=== PATIENT | female | born 1985 | race Caucasian/White ===

== ENCOUNTER 2018-12-03 15:36 | Emergency (ER) | payer SELFPAY ==
--- NOTE | 2018-12-03 15:47 | ER Document Report ---
ED Medical Screen (RME) - General Stated Complaint: FLANK PAIN Time Seen by Provider: 12/03/18 15:41 Mode of Arrival: Ambulatory Information source: Patient Notes: 33-year-old female presenting to ED for complaint of bilateral flank pain pain all over. She states she has a history of frequent UTIs and that is what her normal complaints are. She states she just moved here from [facility] and does not have a local doctor. States she has had pain that started 3 days ago. States she drinks rarely uses marijuana and smokes a pack a day. She states she often gets UTIs. Patient is alert oriented respirations regular and unlabored at this time. Patient complains of nausea, urgency, frequency, and burning with urination. I have greeted and performed a rapid initial assessment of this patient. A comprehensive ED assessment and evaluation of the patient, analysis of test results and completion of medical decision making process will be conducted by an additional ED providers.
[2018-12-03 16:40] LABS: ABSOLUTE EOSINOPHILS # (AUTO) 0.5 10^3/uL (0.0-0.6); ABSOLUTE LYMPHOCYTES (AUTO) 2.2 10^3/uL (0.5-4.7); ABSOLUTE MONOCYTES (AUTO) 0.8 10^3/uL (0.1-1.4); ABSOLUTE NEUT (AUTO) 8.6 10^3/uL (1.7-8.2); BASOPHILS % (AUTO) 0.2 % (0-2); EOSINOPHILS % (AUTO) 4.2 % (0-6); HEMATOCRIT 42.2 % (36.0-47.0); HEMOGLOBIN 13.9 g/dL (12.0-15.5); LYMPHOCYTES % (AUTO) 17.8 % (13-45); MEAN CORPUSCULAR HEMOGLOBIN 28.9 pg (27.0-33.4); MEAN CORPUSCULAR VOLUME 88 fl (80-97); MONOCYTES % (AUTO) 6.4 % (3-13); PLATELET COUNT 312 10^3/uL (150-450); RED BLOOD COUNT 4.81 10^6/uL (3.72-5.28); RED CELL DISTRIBUTION WIDTH 15.3 % (11.5-14.0); SEGMENTED NEUTROPHILS % (AUTO) 71.4 % (42-78); TOTAL CELLS COUNTED % (AUTO) 100 %; WHITE BLOOD COUNT 12.1 10^3/uL (4.0-10.5)
[2018-12-03 16:49] LABS: APPEARANCE,URINE SLIGHTLY-CLOUDY; BILIRUBIN,URINE NEGATIVE (NEGATIVE); COLOR,URINE YELLOW; GLUCOSE, URINE NEGATIVE (NEGATIVE); KETONES,URINE NEGATIVE (NEGATIVE); LEUKOCYTE ESTERASE,URINE MODERATE (NEGATIVE); NITRITE,URINE NEGATIVE (NEGATIVE); PROTEIN,URINE NEGATIVE (NEGATIVE); URINE SPECIFIC GRAVITY 1.009; UROBILINOGEN,URINE NEGATIVE mg/dL (<2.0)
[2018-12-03 16:56] LABS: URINE AMPHETAMINES SCREEN NEGATIVE; URINE BARBITURATES SCREEN NEGATIVE; URINE BENZODIAZEPINES SCREEN NEGATIVE; URINE COCAINE SCREEN UNCONFIRMED POSITIVE; URINE MARIJUANA (THC) SCREEN NEGATIVE; URINE METHADONE SCREEN NEGATIVE; URINE PHENCYCLIDINE SCREEN NEGATIVE
[2018-12-03 16:57] LABS: ALKALINE PHOSPHATASE 131 U/L (38-126); ANION GAP 7 (5-19); ASPARTATE AMINO TRANSFERASE 169 U/L (14-36); BILIRUBIN,DIRECT 0.1 mg/dL (0.0-0.4); BILIRUBIN,TOTAL 0.8 mg/dL (0.2-1.3); BLOOD UREA NITROGEN 5 mg/dL (7-20); CALCIUM 9.8 mg/dL (8.4-10.2); CARBON DIOXIDE 32 mmol/L (22-30); CHLORIDE 99 mmol/L (98-107); GLUCOSE 113 mg/dL (75-110); POTASSIUM 4.2 mmol/L (3.6-5.0); TOTAL PROTEIN 7.4 g/dL (6.3-8.2)
[2018-12-03] MEDS ORDERED: CIPROFLOXACIN HCL 750 MG TABLET PO ONE (17:10)
[2018-12-03] MEDS ORDERED: ONDANSETRON 4 MG TAB.RAPDIS PO ONE (17:12)
[2018-12-03] MEDS ORDERED: PHENAZOPYRIDINE HCL 200 MG TABLET PO ONE (17:12)
--- NOTE | 2018-12-03 17:19 | ER Document Report ---
ED General - General Chief Complaint: Flank Pain Stated Complaint: FLANK PAIN Time Seen by Provider: 12/03/18 15:41 Mode of Arrival: Ambulatory Information source: Patient TRAVEL OUTSIDE OF THE [place] IN LAST 30 DAYS: No - HPI Notes: Patient is a 33-year-old female history of chronic recurrent UTIs comes in with report of flank pain with nausea and urgency and urinary frequency. The patient denies any chest pain or difficulty breathing. She reports no abdominal pain. She denies any constipation or diarrhea. No vaginal discharge or bleeding. Patient later admitted to using cocaine last evening. She reports questionable fever but arrives afebrile. - Related Data Allergies/Adverse Reactions: acetaminophen [From Tylenol] Allergy (Verified 12/03/18 15:45) azithromycin [From Zithromax] Allergy (Verified 12/03/18 15:45) codeine Allergy (Verified 12/03/18 15:45) Penicillins Allergy (Verified 12/03/18 15:45) pseudoephedrine [From Sudafed] Allergy (Verified 12/03/18 15:45) Sulfa (Sulfonamide Antibiotics) Allergy (Verified 12/03/18 15:45) sulfamethoxazole [From Bactrim] Allergy (Verified 12/03/18 15:45) trimethoprim [From Bactrim] Allergy (Verified 12/03/18 15:45) Past Medical History - General Information source: Patient - Social History Smoking Status: Current Every Day Smoker Chew tobacco use (# tins/day): No Frequency of alcohol use: Occasional Drug Abuse: Cocaine, Marijuana Lives with: Alone Family History: None Patient has suicidal ideation: No Patient has homicidal ideation: No Past Surgical History: Reports: Hx Orthopedic Surgery - right arm, Hx Tubal Ligation Review of Systems - Review of Systems -: Yes All other systems reviewed and negative Physical Exam - Vital signs Vitals: Temp Pulse Resp BP 97.9 F 82 18 98/65 L 12/03/18 15:42 12/03/18 15:42 12/03/18 15:42 12/03/18 15:42 - Notes Notes: PHYSICAL EXAMINATION: GENERAL: Well-appearing, well-nourished and in no acute distress. HEAD: Atraumatic, normocephalic. EYES: Pupils equal round and reactive to light, extraocular movements intact, conjunctiva are normal. ENT: Nares patent, oropharynx clear without exudates. Moist mucous membranes. NECK: Normal range of motion, supple without lymphadenopathy LUNGS: Breath sounds clear to auscultation bilaterally and equal. No wheezes rales or rhonchi. HEART: Regular rate and rhythm without murmurs ABDOMEN: Soft, nontender, nondistended abdomen. No guarding, no rebound. No masses appreciated. Female : deferred Musculoskeletal: Normal range of motion, no pitting or edema. No cyanosis. Mild bilateral CVA tenderness. No midline discomfort. No erythema. NEUROLOGICAL: Cranial nerves grossly intact. Normal speech, normal gait. Normal sensory, motor exams PSYCH: Normal mood, normal affect. SKIN: Warm, Dry, normal turgor, no rashes or lesions noted. Course - Re-evaluation Re-evalutation: 12/03/18 17:26 White blood cell count showed a mild elevation. Patient did have evidence for a UTI and a urine culture was obtained. The patient has multiple allergies but she can take Cipro and she was given 1 dose with a dose of Zofran and Pyridium. No obvious evidence for sepsis. No acute kidney injury. Patient reports significant penicillin allergy as well as allergy to Bactrim. We will cover patient with Cipro. 12/03/18 17:27 - Vital Signs Vital signs: Temp Pulse Resp BP Pulse Ox 97.9 F 82 18 98/65 L 12/03/18 15:42 12/03/18 15:42 12/03/18 15:42 12/03/18 15:42 - Laboratory Result Diagrams: 12/03/18 16:25 12/03/18 16:25 Laboratory results interpreted by me: 12/03/18 12/03/18 12/03/18 16:15 16:25 16:25 WBC 12.1 H RDW 15.3 H Absolute Neuts (auto) 8.6 H Carbon Dioxide 32 H BUN 5 L Glucose 113 H AST 169 H Alkaline Phosphatase 131 H Ur Leukocyte Esterase MODERATE H Discharge - Discharge Clinical Impression: Pyelonephritis Condition: Stable Disposition: HOME, SELF-CARE Instructions: Ciprofloxacin ([facility]), Family Physicians / Practices, Pyelonephritis ([facility]) Additional Instructions: Drink plenty of fluids. Return to the emergency department in case of high fever or uncontrolled vomiting. Prescriptions: Ciprofloxacin HCl [Cipro 500 mg Tablet] 500 mg PO BID #20 tablet Promethazine HCl [Phenergan 25 mg Tablet] 1 tab PO Q6H PRN #15 tablet PRN Reason: Forms: Return to Work
[2018-12-03 17:28] VITALS: BP 94/64
--- NOTE | 2018-12-03 21:49 | EKG REPORT ---
SEVERITY:- NORMAL ECG - SINUS RHYTHM : Confirmed by: Shahnaz Smith MD 03-Dec-2018 21:48:42
== END 2018-12-03 17:37 | disposition home or self-care (01) ==
LOC: ER 15:36
DX: N12 Tubulo-interstitial nephritis, not specified as acute or chronic (principal); R10.9 Unspecified abdominal pain; F17.200 Nicotine dependence, unspecified, uncomplicated; Z87.440 Personal history of urinary (tract) infections; Z88.6 Allergy status to analgesic agent; Z88.3 Allergy status to other anti-infective agents; Z88.2 Allergy status to sulfonamides
CPT/HCPCS: 93005; 36415; 87086; 82553; 83690; 84703; 85025; 80053; 81001; 80307; 93010; S0119; J3490 ×2